=== PATIENT | female | born 1990 | race Two or more races ===

== ENCOUNTER 2018-03-27 08:51 | Inpatient (IN) | payer MEDICAID ==
[2018-03-27] MEDS ORDERED: LACTATED RINGER'S 1,000 ML IV (08:56)
[2018-03-27] MEDS ORDERED: LIDOCAINE 1% (MPF) 30 ML INJ INJ (09:00)
[2018-03-27] MEDS ORDERED: CARBOPROST 250 MCG INJ IM ×2 (09:00→11:00)
[2018-03-27] MEDS ORDERED: OXYTOCIN 30 UNITS/LR 500 ML IV ×3 (09:00→11:00)
[2018-03-27] MEDS ORDERED: BUTORPHANOL 2 MG INJ IV (09:00)
[2018-03-27] MEDS ORDERED: METHYLERGONOVINE 0.2 MG INJ IM ×2 (09:00→11:00)
[2018-03-27] MEDS ORDERED: MISOPROSTOL 200 MCG TAB PR ×2 (09:00→11:00)
[2018-03-27] MEDS: AMPICILLIN 2 GM/NS (PMX) 100 ML IVPB (09:30)
[2018-03-27 09:48] LABS: ADD MAN DIFF? NO
[2018-03-27 09:51] LABS: BASOPHILS % 0.5 % (0.0-2.0); EOSINOPHILS # 0.1 10^3/ul (0.0-0.5); EOSINOPHILS % 0.8 % (0.0-7.0); HEMATOCRIT 34.3 % (37.0-47.0); HEMOGLOBIN 10.6 g/dl (12.0-16.0); LYMPHOCYTES % 33.8 % (15.0-51.0); MEAN CORPUSCULAR HEMOGLOBIN 25.6 pg (29.0-33.0); MEAN CORPUSCULAR HGB CONC 30.9 g/dl (32.0-37.0); MEAN CORPUSCULAR VOLUME 82.9 fl (82.0-101.0); MEAN PLATELET VOLUME 11.5 fl (7.4-10.4); MONOCYTE # 0.6 10^3/ul (0.3-0.9); MONOCYTES % 7.1 % (0.0-11.0); NEUTROPHILS % 57.2 % (39.0-77.0); PLATELET COUNT 244 10^3/UL (140-415); RED BLOOD COUNT 4.14 10^6/ul (4.20-5.40); RED CELL DISTRIBUTION WIDTH 16.5 % (11.5-14.5)
[2018-03-27 09:51] LABS: WHITE BLOOD COUNT 8.7 10^3/ul (4.8-10.8)
[2018-03-27] MEDS: OXYTOCIN 30 UNITS/LR 500 ML IV ×2 (09:52→09:53)
[2018-03-27] MEDS: IBUPROFEN 600 MG TAB PO ×3 (09:54→17:49)
[2018-03-27 10:09] LABS: INR 0.89; PROTIME 12.1 Sec (11.9-14.9); PT RATIO 0.9
[2018-03-27 10:10] LABS: PARTIAL THROMBOPLASTIN TIME 27.2 Sec (23.0-35.0)
[2018-03-27] MEDS ORDERED: HYDROCODONE/APAP (5/325) TAB (10:20)
[2018-03-27] MEDS ORDERED: DEXTROSE 5%-LR 1,000 ML IV (10:32)
[2018-03-27] MEDS: HYDROCODONE/APAP (5/325) TAB PO (10:44)
[2018-03-27] MEDS ORDERED: SENNA/DOCUSATE NA (8.6MG/50MG) TAB PO (11:00)
[2018-03-27] MEDS ORDERED: ONDANSETRON 4 MG INJ IV (11:00)
[2018-03-27] MEDS ORDERED: DIPHENHYDRAMINE 50 MG INJ IV (11:00)
[2018-03-27] MEDS ORDERED: ZOLPIDEM 5 MG TAB PO (11:00)
[2018-03-27 11:09] LABS: BARBITURATES Negative (NEGATIVE); BENZODIAZEPINES Negative (NEGATIVE); CANNABINOIDS Positive (NEGATIVE); COCAINE Negative (NEGATIVE); OPIATES Negative (NEGATIVE)
[2018-03-27 11:26] LABS: AMPHETAMINE/METHAMPHETAMINE POSITIVE (NEGATIVE)
[2018-03-27 11:56] LABS: HEPATITIS B SURFACE ANTIGEN NEGATIVE (NEGATIVE)
[2018-03-27 12:06] LABS: HIV 1&2 ANTIBODY NEGATIVE (NEGATIVE)
[2018-03-27] MEDS ORDERED: AMPICILLIN 1 GM/NS (PMX) 50 ML IVPB (13:00)
[2018-03-27 15:09] LABS: RAPID PLASMA REAGIN NONREACTIVE (NR)
[2018-03-27] MEDS: OXYCODONE/ASPIRIN (4.88/325) TAB PO (19:39)
[2018-03-27] MEDS: LANOLIN 7 GM TUBE TOP (21:44)
[2018-03-27] MEDS: DIBUCAINE 1% 30 GM OINT TOP (21:44)
[2018-03-27] MEDS: WITCH HAZEL/GLYCERIN PAD PR (21:44)
[2018-03-27] MEDS: BENZOCAINE 20% 56 ML SPRAY TOP (21:44)
[2018-03-27] MEDS: MINERAL OIL LIGHT 10 ML VIAL TOP (22:19)
[2018-03-27] MEDS: LACTATED RINGER'S 1,000 ML IV* ×2 (22:19)
[2018-03-28] MEDS: OXYCODONE/ASPIRIN (4.88/325) TAB PO ×2 (00:45→09:34)
[2018-03-28] MEDS: LACTATED RINGER'S 1,000 ML IV* ×2 (02:32→10:32)
[2018-03-28 05:17] LABS: ADD MAN DIFF? NO
[2018-03-28 05:24] LABS: BASOPHILS % 0.3 % (0.0-2.0); EOSINOPHILS # 0.2 10^3/ul (0.0-0.5); EOSINOPHILS % 1.8 % (0.0-7.0); HEMOGLOBIN 9.4 g/dl (12.0-16.0); LYMPHOCYTES # 4.3 10^3/ul (0.8-2.9); MEAN CORPUSCULAR HEMOGLOBIN 25.8 pg (29.0-33.0); MEAN CORPUSCULAR HGB CONC 31.3 g/dl (32.0-37.0); MEAN CORPUSCULAR VOLUME 82.4 fl (82.0-101.0); MEAN PLATELET VOLUME 11.4 fl (7.4-10.4); MONOCYTE # 0.8 10^3/ul (0.3-0.9); MONOCYTES % 7.7 % (0.0-11.0); NEUTROPHIL # 5.3 10^3/ul (1.6-7.5); NEUTROPHILS % 49.3 % (39.0-77.0); NUCLEATED RED BLOOD CELLS% 0.2 /100WBC (0.0-0.0); PLATELET COUNT 216 10^3/UL (140-415); RED BLOOD COUNT 3.64 10^6/ul (4.20-5.40); RED CELL DISTRIBUTION WIDTH 16.2 % (11.5-14.5)
[2018-03-28 05:24] LABS: WHITE BLOOD COUNT 10.8 10^3/ul (4.8-10.8)
[2018-03-28] MEDS: IBUPROFEN 600 MG TAB PO ×4 (05:41→17:50)
[2018-03-28] MEDS: INFLUENZA VIRUS VACCINE 0.5 ML (DISPENSING) IM* (13:42)
[2018-03-28] MEDS: DOCUSATE SODIUM 100 MG CAP PO (21:34)
[2018-03-28] MEDS: ACETAMINOPHEN 325 MG TAB PO (21:34)
[2018-03-28] MEDS: POLYSACCHARIDE IRON COMPLEX CAP PO (21:34)
[2018-03-29] MEDS: IBUPROFEN 600 MG TAB PO ×4 (05:31→17:11)
[2018-03-29] MEDS: MEASLES,MUMPS,RUBELLA VACCINE INJ SC* (07:33)
[2018-03-29] MEDS: POLYSACCHARIDE IRON COMPLEX CAP PO ×2 (08:34→21:00)
[2018-03-29] MEDS: DOCUSATE SODIUM 100 MG CAP PO ×2 (08:34→21:00)
[2018-03-29] MEDS: DIPHTH/TET/ACEL PERTUSS (ADULT) 0.5 ML VIAL IM* (08:35)
[2018-03-29 11:57] LABS: RUBELLA ANTIBODY - IGG 1.09 index; RUBELLA ANTIBODY - IGM <20.00 AU/mL
[2018-03-29] MEDS: OXYCODONE/ASPIRIN (4.88/325) TAB PO (19:52)
== END 2018-03-29 21:10 | disposition home or self-care (01) | DRG 807 ==
LOC: OBT 08:51 → L-D 08:51 → OBT 09:00 → L-D 09:03 → MS1 14:49
PROC: 10E0XZZ Delivery of Products of Conception, External Approach (ICD-10-PCS; principal; 2018-03-27)
DX: O99.324 Drug use complicating childbirth (principal); Z37.0 Single live birth; F15.10 Other stimulant abuse, uncomplicated; F12.10 Cannabis abuse, uncomplicated; O90.81 Anemia of the puerperium; D64.9 Anemia, unspecified; Z3A.37 37 weeks gestation of pregnancy; Z23 Encounter for immunization
CPT/HCPCS: 80307; 85025; 85610; 85730; 86592; 86703; 86762; 86850; 86900; 86901; 87340; 90686; 90715; 99464